=== PATIENT | male | born 1995 | race Caucasian/White ===

== ENCOUNTER 2016-08-21 19:42 | Emergency (ER) | payer MEDICAID ==
[~2016-08-21] VITALS: Ht 180.3 cm; Wt 77.4 kg
[2016-08-21 20:21] LABS: PATH.CAST-FLAG NOT PRESENT; SPERM-FLAG NOT PRESENT; SRC-FLAG NOT PRESENT; XTAL-FLAG NOT PRESENT; YLC-FLAG NOT PRESENT
[2016-08-21 20:29] LABS: ASPARTATE AMINO TRANSFERASE 18 U/L (15-37); BLOOD UREA NITROGEN 14 mg/dL (7-18)
[2016-08-21] MEDS ORDERED: CEFTRIAXONE 1,000 MG ONE (21:21)
[2016-08-21] MEDS ORDERED: AZITHROMYCIN 500 MG TABLET ONE (21:21)
[2016-08-21] MEDS ORDERED: LIDOCAINE 1%, 20ML ONE (21:22)
[2016-08-21] MEDS ORDERED: CEFTRIAXONE 1,000 MG IM ONE (21:30)
[2016-08-21] MEDS ORDERED: CEFTRIAXONE 250 MG IM ONE (21:30)
[2016-08-21] MEDS ORDERED: AZITHROMYCIN 500 MG TABLET PO ONE (21:30)
[2016-08-21 21:36] VITALS: BP 128/86
== END 2016-08-21 22:07 | disposition home or self-care (01) ==
LOC: ED 21:30
DX: N12 Tubulo-interstitial nephritis, not specified as acute or chronic (principal); N10 Acute pyelonephritis; R31.9 Hematuria, unspecified; R10.9 Unspecified abdominal pain; N39.0 Urinary tract infection, site not specified; Z90.89 Acquired absence of other organs
CPT/HCPCS: 36415; 74176; 80053; 81001; 85025; 87086; 87491; 87591; 96372; 99285; J0696